=== PATIENT | female | born 1945 | race Caucasian/White ===

== ENCOUNTER 2023-05-08 11:33 | Observation (INO) | payer MEDICARE, SELFPAY ==
--- NOTE | ~2023-05-08 | XR_ITS ---
EXAMINATION: XR CHEST CLINICAL INFORMATION: Shortness of breath. COMPARISON: None available. TECHNIQUE: Frontal view of the chest was obtained. FINDINGS: Lungs are hyperexpanded with flattening of the hemidiaphragms. No pneumothorax or pleural effusion. No focal airspace consolidation. Cardiac silhouette is enlarged. Pulmonary vasculature is unremarkable. Bones are osteopenic. No acute osseous findings. Degenerative spondylosis is present in the thoracic spine. XR/XR chest 1V IMPRESSION: Cardiomegaly. No acute pulmonary findings.
[2023-05-08 11:43] VITALS: BP 112/84; PULSE 94; RESP 18; TEMP 36.5; O2SAT 97; BMI 17.4
--- NOTE | 2023-05-08 11:43 | ECG_ITS ---
Test Reason : SOB Blood Pressure : / mmHG Vent. Rate : 116 BPM Atrial Rate : 116 BPM P-R Int : 156 ms QRS Dur : 082 ms QT Int : 336 ms P-R-T Axes : 061 010 013 degrees QTc Int : 467 ms Sinus tachycardia with Premature atrial complexes Abnormal ECG No previous ECGs available Referred By: Arti Ang Electronically Signed By:EDD FLETCHER
--- NOTE | 2023-05-08 11:45 | ED.DIZZY ---
HPI - Dizziness General Chief Complaint: General Medical Stated Complaint: Diff Breathing Time Seen by Provider: 05/08/23 11:36 Source: patient and family Mode of arrival: ambulatory Limitations: no limitations History of Present Illness HPI Narrative: 78-year-old female felt dizziness and sweating after learned upsetting news of of her daughter in the emergency department. Patient was in the emergency department to see her daughter when she suddenly started to feel dizzy and sweaty with lightheadedness and near-syncope, patient also felt shortness of breath and chest pressure. Patient has an active smoker with no known lung issue, declined using supplemental oxygen at home normally. Related Data Allergies Allergy/AdvReac Type Severity Reaction Status Date / Time No Known Allergies Allergy Verified 05/08/23 11:43 Review of Systems Review of Systems: All other systems are reviewed and are negative Constitutional: Reports as per HPI and Reports no additional constitutional complaints Eyes: Reports as per HPI and Reports no additional eye complaints Reports system reviewed and no additional complaints, except as documented Cardiovascular: Reports as per HPI and Reports no additional cardiovascular complaints Respiratory: Reports as per HPI and Reports no additional respiratory complaints Gastrointestinal: Reports as per HPI and Reports no additional gastrointestinal complaints Genitourinary: Reports no additional female genitourinary complaints Musculoskeletal: Reports no additional musculoskeletal complaints Skin/Breast: Reports system reviewed and no additional complaints, except as docu Psychiatric: Reports no additional psychiatric complaints Endocrine: Reports no additional endocrine complaints Hematologic/Lymphatic: Reports no additional hematologic/lymphatic complaints Allergic/Immunologic: Reports no additional allergic/immunologic complaints Reports system reviewed and no additional complaints, except as documented and Reports Abnormal speech present [facility] Social History Social History Advance Directives: Yes Advance Directives Information Provided: No Advance Directives on File: No Physical Exam Vital Signs: Vital Signs: Last Vital Signs Temp 98.0 F 05/08/23 15:05 Pulse 90 05/08/23 15:05 Resp 16 05/08/23 15:05 BP 100/53 L 05/08/23 15:05 Pulse Ox 96 05/08/23 15:05 O2 Del Method Room Air 05/08/23 15:05 BMI result Body Mass Index 17.4 Appearance: Alert. Oriented X3. No acute distress. Head: Normal external exam. Normocephalic. Atraumatic. No Watson signs noted. No raccoon eyes noted Eyes: PERRLA. EOMI. Conjunctiva and sclera normal. Eyelids normal. ENT: TM's Normal. Pharynx normal. Uvula midline. Moist mucous membranes. No trismus noted. No drooling noted. No muffled voice noted. Neck: Normal inspection. Neck supple. FROM. No adenopathy. Thyroid Normal. No meningeal signs. No neck mass noted. CVS: Normal heart rate and rhythm. Heart sound normal. No murmurs noted. Pulses normal throughout. Respiratory: No respiratory distress. Painless inspiration. Breath sounds normal. No wheezes/rales/rhonchi noted. Chest nontender. No accessory muscle usage noted or decreased air movement noted. Abdomen: Soft and nontender. Bowel sounds normal in all 4 quadrants. No distention noted. No organomegaly noted. No visible injury noted. Back: No CVA tenderness. Full range of motion noted. Skin: Skin warm and dry. Normal skin color. Normal skin turgor. No rashes/lesions/lacerations noted. Extremities: No lower extremity edema. Extremities exhibit normal range of motion. Extremities nontender. Neuro: Oriented X 3. Cranial nerve exam: II-XII are grossly intact No motor deficit. No sensory deficit. Reflexes normal. Course Course Course Narrative: 78-year-old female who had a stress reaction to upsetting news in the emergency department, patient was feeling dizzy and lightheadedness with SOB and chest pain, cardiac workup revealed no acute distress. Reevaluation(s) Reevaluation #1: Patient still have no chest pain, 2nd troponin was elevated with delta changes, case discussed with Dr. Degroot recommended to admit, cardiac monitoring, aspirin, serial troponin, hold off on heparin for now. Time: 16:34 Medications Administered Discontinued Medications Generic Name Dose Route Start Last Admin Trade Name Freq PRN Reason Stop Dose Admin Sodium Chloride 1,000 mls @ 500 mls/hr 05/08/23 11:44 05/08/23 14:46 Ns IV 05/08/23 13:43 Infused .Q2H ONE Infusion Lorazepam 0.5 mg 05/08/23 11:43 05/08/23 11:50 Lorazepam 0.5 Mg Tablet PO 05/08/23 11:44 0.5 mg ONCE ONE Administration Medical Decision Making Differential Diagnosis Differential Diagnoses: The differential diagnosis associated with the presentation includes (ACS, grief reaction, anxiety, electrolyte abnormality, severe anemia.) Admission/Observation Consideration of admission/observation: Escalation of care including admission/observation considered Consult Healthcare Provider Management of the patient was discussed with: Hospitalist (Dr. Magallanes) and Scale Reclamation Tender (Dr. Degroot.) Lab Data MDM Lab Attestation statement: I reviewed the patient's lab results. 05/08/23 11:58 05/08/23 11:58 Labs: Lab Results 05/08/23 05/08/23 05/08/23 Range/Units 11:58 11:58 11:58 WBC 11.8 H (4.8-10.8) X10*3/uL RBC 5.20 (4.20-5.50) X10*6/uL Hgb 15.1 (12.0-16.0) g/dl Hct 46.5 (37.0-47.0) % MCV 89.4 (80.0-98.0) fL MCH 29.0 (27.0-33.0) pg MCHC 32.5 (31.0-35.0) g/dl RDW 13.1 (11.0-16.0) % Plt Count 315 (160-400) X10*3/uL MPV 10.8 (9.4-12.3) fL Immature Gran % (Auto) 0.3 (0.0-0.4) % Neut % (Auto) 79.1 H (45-73) % Lymph % (Auto) 15.5 L (20-40) % [place] % (Auto) 4.5 (2-11) % Eos % (Auto) 0.2 (0-4) % Baso % (Auto) 0.4 (0-2) % Lymph # (Auto) 1.8 (1.2-4.9) X10*3/uL [place] # (Auto) 0.5 (0.1-1.2) X10*3/uL Eos # (Auto) 0.0 (0.0-0.4) X10*3/uL Baso # (Auto) 0.1 (0.0-0.2) X10*3/uL Abs Immat Gran (auto) 0.04 H (0.00-0.03) X10*3/uL Absolute Neuts (auto) 9.3 H (2.0-8.3) x10*3/uL Absolute Nucleated RBC 0.000 (0.0-0.012) X10*3/uL Nucleated RBC % (auto) 0.0 (0.0-0.2) /100WBC Sodium 137 (135-145) mmol/L Potassium 3.7 (3.3-5.1) mmol/L Chloride 102 (96-108) mmol/L Carbon Dioxide 26 (22-29) mmol/L Anion Gap 13 (12-20) BUN 15 (9-16) mg/dL Creatinine 0.76 (0.5-1.4) mg/dL Estim Creat Clear Calc 37.7 Estimated GFR > 60 POC Glucose (60-115) mg/dL Random Glucose 205 H (60-115) mg/dL Calcium 9.6 (8.4-10.2) mg/dL Total Bilirubin 0.5 (0.0-1.0) mg/dL Direct Bilirubin 0.2 (0.0-0.5) mg/dL AST 23 (5-31) U/L ALT 19 (0-31) U/L Alkaline Phosphatase 72 (39-117) U/L Troponin I High Sens 3.3 (<3.5-17.0) ng/L B-Natriuretic Peptide (<100) pg/mL Total Protein 6.9 (6.5-8.0) g/dL Albumin 4.2 (3.5-5.0) g/dL Lipase 29 (8-78) U/L Urine Color Urine Appearance Urine pH (5.0-9.0) Ur Specific [place] (1.005-1.025) Urine Protein (Neg-Trace) mg/dL Urine Glucose (UA) (Negative) mg/dL Urine Ketones (Negative) mg/dL Urine Blood (Negative) Urine Nitrite (Negative) Ur Leukocyte Esterase (Negative) Influenza Type A (PCR) (Negative) Influenza Type B (PCR) (Negative) RSV RNA Qual (PCR) (Negative) SARS-CoV-2 RNA (RT-PCR) (Negative) 05/08/23 05/08/23 05/08/23 Range/Units 11:58 11:58 12:00 WBC (4.8-10.8) X10*3/uL RBC (4.20-5.50) X10*6/uL Hgb (12.0-16.0) g/dl Hct (37.0-47.0) % MCV (80.0-98.0) fL MCH (27.0-33.0) pg MCHC (31.0-35.0) g/dl RDW (11.0-16.0) % Plt Count (160-400) X10*3/uL MPV (9.4-12.3) fL Immature Gran % (Auto) (0.0-0.4) % Neut % (Auto) (45-73) % Lymph % (Auto) (20-40) % [place] % (Auto) (2-11) % Eos % (Auto) (0-4) % Baso % (Auto) (0-2) % Lymph # (Auto) (1.2-4.9) X10*3/uL [place] # (Auto) (0.1-1.2) X10*3/uL Eos # (Auto) (0.0-0.4) X10*3/uL Baso # (Auto) (0.0-0.2) X10*3/uL Abs Immat Gran (auto) (0.00-0.03) X10*3/uL Absolute Neuts (auto) (2.0-8.3) x10*3/uL Absolute Nucleated RBC (0.0-0.012) X10*3/uL Nucleated RBC % (auto) (0.0-0.2) /100WBC Sodium (135-145) mmol/L Potassium (3.3-5.1) mmol/L Chloride (96-108) mmol/L Carbon Dioxide (22-29) mmol/L Anion Gap (12-20) BUN (9-16) mg/dL Creatinine (0.5-1.4) mg/dL Estim Creat Clear Calc Estimated GFR POC Glucose 182 H (60-115) mg/dL Random Glucose (60-115) mg/dL Calcium (8.4-10.2) mg/dL Total Bilirubin (0.0-1.0) mg/dL Direct Bilirubin (0.0-0.5) mg/dL AST (5-31) U/L ALT (0-31) U/L Alkaline Phosphatase (39-117) U/L Troponin I High Sens (<3.5-17.0) ng/L B-Natriuretic Peptide 76 (<100) pg/mL Total Protein (6.5-8.0) g/dL Albumin (3.5-5.0) g/dL Lipase (8-78) U/L Urine Color Urine Appearance Urine pH (5.0-9.0) Ur Specific [place] (1.005-1.025) Urine Protein (Neg-Trace) mg/dL Urine Glucose (UA) (Negative) mg/dL Urine Ketones (Negative) mg/dL Urine Blood (Negative) Urine Nitrite (Negative) Ur Leukocyte Esterase (Negative) Influenza Type A (PCR) NEGATIVE (Negative) Influenza Type B (PCR) NEGATIVE (Negative) RSV RNA Qual (PCR) NEGATIVE (Negative) SARS-CoV-2 RNA (RT-PCR) NEGATIVE (Negative) 05/08/23 05/08/23 Range/Units 13:20 15:09 WBC (4.8-10.8) X10*3/uL RBC (4.20-5.50) X10*6/uL Hgb (12.0-16.0) g/dl Hct (37.0-47.0) % MCV (80.0-98.0) fL MCH (27.0-33.0) pg MCHC (31.0-35.0) g/dl RDW (11.0-16.0) % Plt Count (160-400) X10*3/uL MPV (9.4-12.3) fL Immature Gran % (Auto) (0.0-0.4) % Neut % (Auto) (45-73) % Lymph % (Auto) (20-40) % [place] % (Auto) (2-11) % Eos % (Auto) (0-4) % Baso % (Auto) (0-2) % Lymph # (Auto) (1.2-4.9) X10*3/uL [place] # (Auto) (0.1-1.2) X10*3/uL Eos # (Auto) (0.0-0.4) X10*3/uL Baso # (Auto) (0.0-0.2) X10*3/uL Abs Immat Gran (auto) (0.00-0.03) X10*3/uL Absolute Neuts (auto) (2.0-8.3) x10*3/uL Absolute Nucleated RBC (0.0-0.012) X10*3/uL Nucleated RBC % (auto) (0.0-0.2) /100WBC Sodium (135-145) mmol/L Potassium (3.3-5.1) mmol/L Chloride (96-108) mmol/L Carbon Dioxide (22-29) mmol/L Anion Gap (12-20) BUN (9-16) mg/dL Creatinine (0.5-1.4) mg/dL Estim Creat Clear Calc Estimated GFR POC Glucose (60-115) mg/dL Random Glucose (60-115) mg/dL Calcium (8.4-10.2) mg/dL Total Bilirubin (0.0-1.0) mg/dL Direct Bilirubin (0.0-0.5) mg/dL AST (5-31) U/L ALT (0-31) U/L Alkaline Phosphatase (39-117) U/L Troponin I High Sens 41.1 H D (<3.5-17.0) ng/L B-Natriuretic Peptide (<100) pg/mL Total Protein (6.5-8.0) g/dL Albumin (3.5-5.0) g/dL Lipase (8-78) U/L Urine Color Yellow Urine Appearance Clear Urine pH 7.0 (5.0-9.0) Ur Specific [place] <= 1.005 (1.005-1.025) Urine Protein Trace (Neg-Trace) mg/dL Urine Glucose (UA) Negative (Negative) mg/dL Urine Ketones Negative (Negative) mg/dL Urine Blood Negative (Negative) Urine Nitrite Negative (Negative) Ur Leukocyte Esterase Negative (Negative) Influenza Type A (PCR) (Negative) Influenza Type B (PCR) (Negative) RSV RNA Qual (PCR) (Negative) SARS-CoV-2 RNA (RT-PCR) (Negative) Independent Interpretation I performed an independent interpretation of an: EKG (Sinus tachycardia at 116 beats per minutes, left axis deviation, normal intervals, no ST-T changes.) and Plain X-Ray (Chest: Cardiomegaly no acute pulmonary findings.) Radiology Impression Discussion of test interpretation with radiology: I have reviewed the radiologist's reading. Discharge Plan Discharge Clinical Impression: Grief reaction, Anxiety as acute reaction to exceptional stress, Non-ST elevated myocardial infarction (non-STEMI) Patient Disposition: Admitted As Inpatient
[2023-05-08] MEDS: LORazepam 0.5 MG TABLET PO (11:50)
[2023-05-08] MEDS: 0.9 % Sodium Chloride 1,000 ML 500 ML IV (12:02)
[2023-05-08 12:04] LABS: MANUAL DIFF FLAG NO
[2023-05-08 12:04] LABS: Glucose, Whole Blood 182 mg/dL (60-115)
[2023-05-08 12:06] LABS: Basophils Absolute Auto 0.1 X10*3/uL (0.0-0.2); Basophils Percent Auto 0.4 % (0-2); Eosinophils Percent Auto 0.2 % (0-4); Hematocrit 46.5 % (37.0-47.0); Hemoglobin 15.1 g/dl (12.0-16.0); Imm Gran Abs Auto 0.04 X10*3/uL (0.00-0.03); Imm Gran Pct Auto 0.3 % (0.0-0.4); Lymphocytes Absolute Auto 1.8 X10*3/uL (1.2-4.9); Lymphocytes Percent Auto 15.5 % (20-40); Mean Corpuscular HGB Conc 32.5 g/dl (31.0-35.0); Mean Corpuscular Volume 89.4 fL (80.0-98.0); Mean Platelet Volume 10.8 fL (9.4-12.3); Monocytes Absolute Auto 0.5 X10*3/uL (0.1-1.2); Monocytes Percent Auto 4.5 % (2-11); Neutrophils Absolute Auto 9.3 x10*3/uL (2.0-8.3); Neutrophils Percent Auto 79.1 % (45-73); Platelet Count 315 X10*3/uL (160-400); Red Cell Distribution Width 13.1 % (11.0-16.0); White Blood Count 11.8 X10*3/uL (4.8-10.8)
[2023-05-08 12:34] LABS: Alanine Aminotransferase 19 U/L (0-31); Albumin Level 4.2 g/dL (3.5-5.0); Alkaline Phosphatase 72 U/L (39-117); Anion Gap 13 (12-20); Aspartate Amino Transferase 23 U/L (5-31); Bilirubin Direct 0.2 mg/dL (0.0-0.5); Bilirubin Total 0.5 mg/dL (0.0-1.0); Blood Urea Nitrogen 15 mg/dL (9-16); Calcium 9.6 mg/dL (8.4-10.2); Carbon Dioxide 26 mmol/L (22-29); Chloride 102 mmol/L (96-108); Creatinine Clr Calc Pharmacy 37.7; Estimated Glomerular Filt Rate > 60; Glucose Random 205 mg/dL (60-115); Lipase 29 U/L (8-78); Potassium 3.7 mmol/L (3.3-5.1); Sodium 137 mmol/L (135-145); Total Protein 6.9 g/dL (6.5-8.0)
[2023-05-08 12:41] LABS: B Type Natriuretic Peptide 76 pg/mL (<100)
[2023-05-08 12:42] LABS: Influenza A PCR NEGATIVE (Negative); Influenza B PCR NEGATIVE (Negative); Resp Syncy Virus RNA Qual PCR NEGATIVE (Negative); SARS COV2 PCR INHOUSE NEGATIVE (Negative)
[2023-05-08 12:56] LABS: Troponin-I High Sensitivity 3.3 ng/L (<3.5-17.0)
--- NOTE | 2023-05-08 13:02 | PC.NURSE ---
patient resting in bed, becomes tearful when speaking about recent family loss. patient is visibly less short of breath, appears less anxious, family at bedside
[2023-05-08 13:18] VITALS: BP 108/67; PULSE 92
[2023-05-08 13:19] VITALS: BP 113/76; BP 115/78; PULSE 100; PULSE 94
[2023-05-08 13:32] LABS: Appearance Urine Clear; Color Urine Yellow; Glucose Urine UA Negative (Negative); Leukocyte Esterase Urine Negative (Negative); Nitrite Urine Negative (Negative); Specific Gravity - Urine <= 1.005 (1.005-1.025); Urine Blood Negative (Negative); Urine Ketones Negative (Negative); Urine Protein Trace mg/dL (Neg-Trace)
--- NOTE | 2023-05-08 14:46 | PC.NURSE ---
IV fluids infused per mar. pt c/o pain to IV site and requesting IV be taken out. Ok'd by Dr. Ang. awaiting second trop to be drawn at 1500.
[2023-05-08 15:05] VITALS: BP 100/53; PULSE 90; RESP 16; TEMP 36.7; O2SAT 96
[2023-05-08 15:48] LABS: Troponin-I High Sensitivity 41.1 ng/L (<3.5-17.0)
--- NOTE | 2023-05-08 16:52 | P.HPHOSP_ITS ---
History of Present Illness Date of Service: 05/08/23 Chief Complaint: chest pain 78F no significant PMH. presented with sudden onset chest pain. patient was in ED upon hearing of of her daughter began to feel dizzy, diaphoresis, midsternal chest pain, sob. ekg nonspecific, trop 3.3 to 41, random glucose note d to be 205. Review of Systems Review of Systems: Yes all other systems are reviewed and are negative [facility] Social History Advance Directives: Yes Advance Directives Information Provided: No Advance Directives on File: No Meds Allergies Allergy/AdvReac Type Severity Reaction Status Date / Time No Known Allergies Allergy Verified 05/08/23 11:43 Active Medications: Current Medications Sodium Chloride (0.9 % Sodium Chloride Flush 3 Ml Syringe) 3 ml IVFLUSH QSHIFT CHANI Physical Exam Vital Signs and Narrative: Vital Signs: Last Vital Signs Temp 98.0 F 05/08/23 15:05 Pulse 90 05/08/23 15:05 Resp 16 05/08/23 15:05 BP 100/53 L 05/08/23 15:05 Pulse Ox 96 05/08/23 15:05 O2 Del Method Room Air 05/08/23 15:05 BMI result Body Mass Index 17.4 General: AO X 3, no acute distress Resp: CTA bilateral, no accessory muscles used CVS: S1,S2,RRR GI: soft, non tender, non distended Neuro: motor grossly intact, alert Psych: appropriate affect, appropriate insight Results Labs 05/08/23 11:58 05/08/23 11:58 Labs: Laboratory Results - last 24 hr 05/08/23 05/08/23 05/08/23 11:58 11:58 11:58 MCV 89.4 MCH 29.0 MCHC 32.5 RDW 13.1 Plt Count 315 MPV 10.8 Immature Gran % (Auto) 0.3 Neut % (Auto) 79.1 H Lymph % (Auto) 15.5 L [place] % (Auto) 4.5 Eos % (Auto) 0.2 Baso % (Auto) 0.4 Lymph # (Auto) 1.8 [place] # (Auto) 0.5 Eos # (Auto) 0.0 Baso # (Auto) 0.1 Abs Immat Gran (auto) 0.04 H Absolute Neuts (auto) 9.3 H Absolute Nucleated RBC 0.000 Nucleated RBC % (auto) 0.0 Anion Gap 13 Estim Creat Clear Calc 37.7 Estimated GFR > 60 POC Glucose Random Glucose 205 H Calcium 9.6 Total Bilirubin 0.5 Direct Bilirubin 0.2 AST 23 ALT 19 Alkaline Phosphatase 72 B-Natriuretic Peptide 76 Total Protein 6.9 Albumin 4.2 Lipase 29 Urine Color Urine Appearance Urine pH Ur Specific [place] Urine Protein Urine Glucose (UA) Urine Ketones Urine Blood Urine Nitrite Ur Leukocyte Esterase Influenza Type A (PCR) Influenza Type B (PCR) RSV RNA Qual (PCR) SARS-CoV-2 RNA (RT-PCR) 05/08/23 05/08/23 05/08/23 11:58 12:00 13:20 MCV MCH MCHC RDW Plt Count MPV Immature Gran % (Auto) Neut % (Auto) Lymph % (Auto) [place] % (Auto) Eos % (Auto) Baso % (Auto) Lymph # (Auto) [place] # (Auto) Eos # (Auto) Baso # (Auto) Abs Immat Gran (auto) Absolute Neuts (auto) Absolute Nucleated RBC Nucleated RBC % (auto) Anion Gap Estim Creat Clear Calc Estimated GFR POC Glucose 182 H Random Glucose Calcium Total Bilirubin Direct Bilirubin AST ALT Alkaline Phosphatase B-Natriuretic Peptide Total Protein Albumin Lipase Urine Color Yellow Urine Appearance Clear Urine pH 7.0 Ur Specific [place] <= 1.005 Urine Protein Trace Urine Glucose (UA) Negative Urine Ketones Negative Urine Blood Negative Urine Nitrite Negative Ur Leukocyte Esterase Negative Influenza Type A (PCR) NEGATIVE Influenza Type B (PCR) NEGATIVE RSV RNA Qual (PCR) NEGATIVE SARS-CoV-2 RNA (RT-PCR) NEGATIVE Imaging Radiologist's Impressions: Impressions Chest X-Ray 05/08/23 13:00 IMPRESSION: Cardiomegaly. No acute pulmonary findings. Assessment and Plan (1) Chest pain: Status: Acute Plan 78F presented with chest pain chest pain with elevated troponin monitor on tele cardio eval serial trop hyperglycemia check a1c dvt prophylaxis - lovenox full code Time Spent With Patient Time: Total time managing care of this patient today ____ minutes. Quality Stroke Does the patient have a stroke diagnosis?: No VTE Prior VTE?: No VTE Risk Level:: Medical - moderate - high VTE Device Contraindication: Treatment Not Indicated VTE Drug Contraindication: N/A - Med Ordered
[2023-05-08] MEDS: Aspirin Enteric Coated 81 MG TABLET.DR PO (16:56)
[2023-05-08 17:04] LABS: Estimated Average Glucose 103 mg/dL; Hemoglobin A1c % 5.2 % (<6.0)
--- NOTE | 2023-05-08 17:35 | PHA.MEDREC ---
Pharmacy Consult ? Medication Reconciliation Pharmacy has completed the medication reconciliation.
[2023-05-08 18:15] LABS: Troponin-I High Sensitivity 47.4 ng/L (<3.5-17.0)
[2023-05-08 18:25] VITALS: BP 117/64; PULSE 72; RESP 20; TEMP 37.2; O2SAT 96
[2023-05-08 18:39] VITALS: BMI 18.4
[2023-05-08 19:09] VITALS: BP 117/64; PULSE 72; RESP 18; TEMP 37.2; O2SAT 96
[2023-05-08] MEDS: 0.9 % Sodium Chloride Flush 3 ML SYRINGE IVFLUSH (20:58)
[2023-05-09] VITALS: BP 104/66; PULSE 70; RESP 20; TEMP 36.2; O2SAT 96
--- NOTE | 2023-05-09 | ECG_ITS ---
Test Reason : chest pain Blood Pressure : / mmHG Vent. Rate : 087 BPM Atrial Rate : 087 BPM P-R Int : 152 ms QRS Dur : 074 ms QT Int : 346 ms P-R-T Axes : 067 010 002 degrees QTc Int : 416 ms Sinus rhythm with marked sinus arrhythmia Otherwise normal ECG When compared with ECG of 08-MAY-2023 11:51, Heart rate has decreased Referred By: Stephan Magallanes Electronically Signed By:EDD FLETCHER
[2023-05-09 03:28] VITALS: BP 128/64; PULSE 78; RESP 20; TEMP 36.1; O2SAT 97
[2023-05-09 06:20] LABS: Anion Gap 9 (12-20); Blood Urea Nitrogen 17 mg/dL (9-16); Calcium 9.2 mg/dL (8.4-10.2); Carbon Dioxide 26 mmol/L (22-29); Chloride 112 mmol/L (96-108); Creatinine Clr Calc Pharmacy 40.4; Estimated Glomerular Filt Rate > 60; Glucose Fasting 86 mg/dL (60-99); Magnesium 2.1 mg/dL (1.6-2.6); Potassium 4.3 mmol/L (3.3-5.1); Sodium 143 mmol/L (135-145)
[2023-05-09 06:25] LABS: Troponin-I High Sensitivity 23.9 ng/L (<3.5-17.0)
[2023-05-09 06:39] LABS: Hematocrit 38.9 % (37.0-47.0); Hemoglobin 12.4 g/dl (12.0-16.0); Mean Corpuscular HGB Conc 31.9 g/dl (31.0-35.0); Mean Corpuscular Hemoglobin 29.3 pg (27.0-33.0); Mean Platelet Volume 11.9 fL (9.4-12.3); Platelet Count 256 X10*3/uL (160-400); Red Blood Count 4.23 X10*6/uL (4.20-5.50); Red Cell Distribution Width 13.2 % (11.0-16.0); White Blood Count 8.4 X10*3/uL (4.8-10.8)
[2023-05-09 07:25] VITALS: BP 123/63; PULSE 76; RESP 20; TEMP 36.2; O2SAT 95
[2023-05-09] MEDS: 0.9 % Sodium Chloride Flush 3 ML SYRINGE IVFLUSH (09:13)
[2023-05-09] MEDS: Multivitamin TABLET 1 TAB PO (09:13)
[2023-05-09] MEDS: Cholecalciferol (Vitamin D3) 25 MCG TABLET 50 MCG PO (09:13)
[2023-05-09] MEDS: Enoxaparin Sodium 40 MG/0.4 ML SYRINGE SUBCUT (09:13)
--- NOTE | 2023-05-09 10:42 | P.DS_ITS ---
DS: Providers Provider Date of Service: 05/09/23 Date of admission: 05/08/23 16:51 Primary care physician: Unknown Physician Consults: 05/08/23 16:50 Consult to Cardiology Routine Consulting Provider: [facility] Reason for consultation: cehst pain, troponin DS: Diagnosis Discharge Diagnosis (1) Chest pain: Status: Acute DS: Summary Hospital Course Hospital Course: from initial hpi: 78F no significant PMH. presented with sudden onset chest pain. patient was in ED upon hearing of of her daughter began to feel dizzy, diaphoresis, midsternal chest pain, sob. ekg nonspecific, trop 3.3 to 41, random glucose noted to be 205. hospital course: Patient was observed for chest pain. Her troponin peaked in the 40s. Chest pain resolved. EKG with no ischemic changes, marked sinus arrhythmia. Hyperglycemia resolved and A1c was 5.2. Patient will be discharged home. Time Spent with Patient Time attestation: Total time managing care of this patient today ____ minutes. Discharge coordination time: Greater than 30 minutes Quality: Safe Use of Opioids Does Pt have an Active Cancer Diagnosis on the Problem List?: No Quality: Stroke Does the patient have a stroke diagnosis?: No Physical Exam Vital Signs: Vital Signs: Last Vital Signs Temp 97.2 F 05/09/23 07:25 Pulse 76 05/09/23 07:25 Resp 20 05/09/23 07:25 BP 123/63 05/09/23 07:25 Pulse Ox 95 05/09/23 07:25 O2 Del Method Room Air 05/09/23 07:25 BMI result Body Mass Index 18.4 General: AO X 3, no acute distress Resp: CTA bilateral, no accessory muscles used CVS: S1,S2,RRR GI: soft, non tender, non distended Neuro: motor grossly intact, alert Psych: appropriate affect, appropriate insight DS: Data Data Completed and Pending Labs on day of discharge: Laboratory Results - last 24 hr 05/08/23 05/08/23 05/08/23 11:58 11:58 11:58 WBC 11.8 H RBC 5.20 Hgb 15.1 Hct 46.5 MCV 89.4 MCH 29.0 MCHC 32.5 RDW 13.1 Plt Count 315 MPV 10.8 Immature Gran % (Auto) 0.3 Neut % (Auto) 79.1 H Lymph % (Auto) 15.5 L [place] % (Auto) 4.5 Eos % (Auto) 0.2 Baso % (Auto) 0.4 Lymph # (Auto) 1.8 [place] # (Auto) 0.5 Eos # (Auto) 0.0 Baso # (Auto) 0.1 Abs Immat Gran (auto) 0.04 H Absolute Neuts (auto) 9.3 H Absolute Nucleated RBC 0.000 Nucleated RBC % (auto) 0.0 Sodium 137 Potassium 3.7 Chloride 102 Carbon Dioxide 26 Anion Gap 13 BUN 15 Creatinine 0.76 Estim Creat Clear Calc 37.7 Estimated GFR > 60 POC Glucose Random Glucose 205 H Fasting Glucose Estimat Average Glucose Hemoglobin A1c % Calcium 9.6 Magnesium Total Bilirubin 0.5 Direct Bilirubin 0.2 AST 23 ALT 19 Alkaline Phosphatase 72 Troponin I High Sens 3.3 B-Natriuretic Peptide Total Protein 6.9 Albumin 4.2 Lipase 29 Urine Color Urine Appearance Urine pH Ur Specific [place] Urine Protein Urine Glucose (UA) Urine Ketones Urine Blood Urine Nitrite Ur Leukocyte Esterase Influenza Type A (PCR) Influenza Type B (PCR) RSV RNA Qual (PCR) SARS-CoV-2 RNA (RT-PCR) 05/08/23 05/08/23 05/08/23 11:58 11:58 11:58 WBC RBC Hgb Hct MCV MCH MCHC RDW Plt Count MPV Immature Gran % (Auto) Neut % (Auto) Lymph % (Auto) [place] % (Auto) Eos % (Auto) Baso % (Auto) Lymph # (Auto) [place] # (Auto) Eos # (Auto) Baso # (Auto) Abs Immat Gran (auto) Absolute Neuts (auto) Absolute Nucleated RBC Nucleated RBC % (auto) Sodium Potassium Chloride Carbon Dioxide Anion Gap BUN Creatinine Estim Creat Clear Calc Estimated GFR POC Glucose Random Glucose Fasting Glucose Estimat Average Glucose 103 Hemoglobin A1c % 5.2 Calcium Magnesium Total Bilirubin Direct Bilirubin AST ALT Alkaline Phosphatase Troponin I High Sens B-Natriuretic Peptide 76 Total Protein Albumin Lipase Urine Color Urine Appearance Urine pH Ur Specific [place] Urine Protein Urine Glucose (UA) Urine Ketones Urine Blood Urine Nitrite Ur Leukocyte Esterase Influenza Type A (PCR) NEGATIVE Influenza Type B (PCR) NEGATIVE RSV RNA Qual (PCR) NEGATIVE SARS-CoV-2 RNA (RT-PCR) NEGATIVE 05/08/23 05/08/23 05/08/23 12:00 13:20 15:09 WBC RBC Hgb Hct MCV MCH MCHC RDW Plt Count MPV Immature Gran % (Auto) Neut % (Auto) Lymph % (Auto) [place] % (Auto) Eos % (Auto) Baso % (Auto) Lymph # (Auto) [place] # (Auto) Eos # (Auto) Baso # (Auto) Abs Immat Gran (auto) Absolute Neuts (auto) Absolute Nucleated RBC Nucleated RBC % (auto) Sodium Potassium Chloride Carbon Dioxide Anion Gap BUN Creatinine Estim Creat Clear Calc Estimated GFR POC Glucose 182 H Random Glucose Fasting Glucose Estimat Average Glucose Hemoglobin A1c % Calcium Magnesium Total Bilirubin Direct Bilirubin AST ALT Alkaline Phosphatase Troponin I High Sens 41.1 H D B-Natriuretic Peptide Total Protein Albumin Lipase Urine Color Yellow Urine Appearance Clear Urine pH 7.0 Ur Specific [place] <= 1.005 Urine Protein Trace Urine Glucose (UA) Negative Urine Ketones Negative Urine Blood Negative Urine Nitrite Negative Ur Leukocyte Esterase Negative Influenza Type A (PCR) Influenza Type B (PCR) RSV RNA Qual (PCR) SARS-CoV-2 RNA (RT-PCR) 05/08/23 05/09/23 05/09/23 17:48 05:40 05:40 WBC 8.4 RBC 4.23 Hgb 12.4 Hct 38.9 MCV 92.0 MCH 29.3 MCHC 31.9 RDW 13.2 Plt Count 256 MPV 11.9 Immature Gran % (Auto) Neut % (Auto) Lymph % (Auto) [place] % (Auto) Eos % (Auto) Baso % (Auto) Lymph # (Auto) [place] # (Auto) Eos # (Auto) Baso # (Auto) Abs Immat Gran (auto) Absolute Neuts (auto) Absolute Nucleated RBC 0.000 Nucleated RBC % (auto) 0.0 Sodium 143 Potassium 4.3 Chloride 112 H Carbon Dioxide 26 Anion Gap 9 L BUN 17 H Creatinine 0.75 Estim Creat Clear Calc 40.4 Estimated GFR > 60 POC Glucose Random Glucose Fasting Glucose 86 Estimat Average Glucose Hemoglobin A1c % Calcium 9.2 Magnesium 2.1 Total Bilirubin Direct Bilirubin AST ALT Alkaline Phosphatase Troponin I High Sens 47.4 H B-Natriuretic Peptide Total Protein Albumin Lipase Urine Color Urine Appearance Urine pH Ur Specific [place] Urine Protein Urine Glucose (UA) Urine Ketones Urine Blood Urine Nitrite Ur Leukocyte Esterase Influenza Type A (PCR) Influenza Type B (PCR) RSV RNA Qual (PCR) SARS-CoV-2 RNA (RT-PCR) 05/09/23 05:40 WBC RBC Hgb Hct MCV MCH MCHC RDW Plt Count MPV Immature Gran % (Auto) Neut % (Auto) Lymph % (Auto) [place] % (Auto) Eos % (Auto) Baso % (Auto) Lymph # (Auto) [place] # (Auto) Eos # (Auto) Baso # (Auto) Abs Immat Gran (auto) Absolute Neuts (auto) Absolute Nucleated RBC Nucleated RBC % (auto) Sodium Potassium Chloride Carbon Dioxide Anion Gap BUN Creatinine Estim Creat Clear Calc Estimated GFR POC Glucose Random Glucose Fasting Glucose Estimat Average Glucose Hemoglobin A1c % Calcium Magnesium Total Bilirubin Direct Bilirubin AST ALT Alkaline Phosphatase Troponin I High Sens 23.9 H B-Natriuretic Peptide Total Protein Albumin Lipase Urine Color Urine Appearance Urine pH Ur Specific [place] Urine Protein Urine Glucose (UA) Urine Ketones Urine Blood Urine Nitrite Ur Leukocyte Esterase Influenza Type A (PCR) Influenza Type B (PCR) RSV RNA Qual (PCR) SARS-CoV-2 RNA (RT-PCR) Discharge Plan Discharge Anticipated Discharge Date/Time: 05/09/23 10:33 Patient Disposition: Home, Self-Care Discharge Diagnosis: chest pain Referrals: Physician,Unknown J [Primary Care Provider] - 1 Week Discharge Medications: Continued multivitamin Tablet 1 tab PO DAILY ibuprofen 200 mg Tablet 400 mg PO DAILY PRN (Reason: Pain) cholecalciferol (vitamin D3) 50 mcg (2,000 unit) Capsule 50 mcg PO DAILY Discharge Orders: Discharge Order (Routine); Ordered 05/09/23 Ordered By: Stephan Magallanes Diet: Advance to usual diet Activity on Discharge: As tolerated Stand Alone Forms: Patient Portal Discharge page Care Plan Goals: recovery Health Concerns: chest pain Plan of Treatment: follow up cardio Assessment: see above Patient Instructions: Grief and Loss (ED)
--- NOTE | 2023-05-09 11:11 | MHC.CM.PN ---
met with pt and grandson pt lives with son is independent no servies will be needed
[2023-05-09 11:19] VITALS: BP 151/68; PULSE 41; RESP 20; TEMP 36.7; O2SAT 100
--- NOTE | 2023-05-09 11:32 | P.CONCA_ITS ---
History of Present Illness History of Present Illness Date of Service: 05/09/23 Requesting physician: Stephan Magallanes Chief complaint: chest pain Narrative: 78-year-old female who is presenting for chest pain and diaphoresis. She found out about her daughter's and developed some chest discomfort ends sweating along with shortness of breath. With these symptoms she was brought to emergency department. ECG did not have any dynamic changes. She has mild el evation of troponin and she was admitted. Repeat ECG showing no room acute changes 2. She is completely symptom free. She has been walking the hallways without any issues at this point. She feels that this was an anxiety attack after finding about her daughter's . She is a smoker and has been smoking all her life. Denies any cardiovascular issues otherwise. [facility] Social History Social History Patient Tobacco Use Status: Current everyday Tobacco user Cigarette Packs Per Day: 1 Cigarettes Per Day: 20.0 Advance Directives Date on File: 05/08/23 Meds Allergies Allergy/AdvReac Type Severity Reaction Status Date / Time No Known Allergies Allergy Verified 05/08/23 11:43 Active Medications: Current Medications Enoxaparin Sodium (Enoxaparin Sodium 40 Mg/0.4 Ml Syringe) 40 mg SUBCUT Q24H [facility] Last Admin: 05/09/23 09:13 Dose: 40 mg Multivitamins/Vitamin C (Multivitamin Tablet) 1 tab PO DAILY [facility] Last Admin: 05/09/23 09:13 Dose: 1 tab Sodium Chloride (0.9 % Sodium Chloride Flush 3 Ml Syringe) 3 ml IVFLUSH QSHIFT [facility] Last Admin: 05/09/23 09:13 Dose: 3 ml Vitamin D (Cholecalciferol (Vitamin D3) 25 Mcg Tablet) 50 mcg PO DAILY [facility] Last Admin: 05/09/23 09:13 Dose: 50 mcg Home Medications Medication Instructions Recorded Confirmed Last Taken Type cholecalciferol (vitamin D3) 50 50 mcg PO DAILY 05/08/23 05/08/23 Unknown History mcg (2,000 unit) capsule ibuprofen 200 mg tablet 400 mg PO DAILY PRN Pain 05/08/23 05/08/23 Unknown History multivitamin 1 tab PO DAILY 05/08/23 05/08/23 Unknown History Physical Exam 2 Vital Signs: Vital Signs: Last Vital Signs Temp 98.1 F 05/09/23 11:19 Pulse 41 L 05/09/23 11:19 Resp 20 05/09/23 11:19 BP 151/68 H 05/09/23 11:19 Pulse Ox 100 05/09/23 11:19 O2 Del Method Room Air 05/09/23 11:19 BMI result Body Mass Index 18.4 GENERAL APPEARANCE: in no acute distress, tearful. NECK: no carotid bruit, no jugular venous distention. SKIN: no suspicious lesions, warm and dry. HEART: no murmurs, regular rate and rhythm. LUNGS: clear to auscultation bilaterally. ABDOMEN: soft, nontender. EXTREMITIES: no edema. PERIPHERAL PULSES: equal. NEUROLOGIC: No gross deficits, AAO X 3 Objective Labs and Meds 05/09/23 05:40 05/09/23 05:40 Lab results: Laboratory Results - last 24 hr 05/08/23 05/08/23 05/08/23 11:58 11:58 11:58 WBC 11.8 H RBC 5.20 Hgb 15.1 Hct 46.5 MCV 89.4 MCH 29.0 MCHC 32.5 RDW 13.1 Plt Count 315 MPV 10.8 Immature Gran % (Auto) 0.3 Neut % (Auto) 79.1 H Lymph % (Auto) 15.5 L [place] % (Auto) 4.5 Eos % (Auto) 0.2 Baso % (Auto) 0.4 Lymph # (Auto) 1.8 [place] # (Auto) 0.5 Eos # (Auto) 0.0 Baso # (Auto) 0.1 Abs Immat Gran (auto) 0.04 H Absolute Neuts (auto) 9.3 H Absolute Nucleated RBC 0.000 Nucleated RBC % (auto) 0.0 Sodium 137 Potassium 3.7 Chloride 102 Carbon Dioxide 26 Anion Gap 13 BUN 15 Creatinine 0.76 Estim Creat Clear Calc 37.7 Estimated GFR > 60 POC Glucose Random Glucose 205 H Fasting Glucose Estimat Average Glucose Hemoglobin A1c % Calcium 9.6 Magnesium Total Bilirubin 0.5 Direct Bilirubin 0.2 AST 23 ALT 19 Alkaline Phosphatase 72 Troponin I High Sens 3.3 B-Natriuretic Peptide Total Protein 6.9 Albumin 4.2 Lipase 29 Urine Color Urine Appearance Urine pH Ur Specific [place] Urine Protein Urine Glucose (UA) Urine Ketones Urine Blood Urine Nitrite Ur Leukocyte Esterase Influenza Type A (PCR) Influenza Type B (PCR) RSV RNA Qual (PCR) SARS-CoV-2 RNA (RT-PCR) 05/08/23 05/08/23 05/08/23 11:58 11:58 11:58 WBC RBC Hgb Hct MCV MCH MCHC RDW Plt Count MPV Immature Gran % (Auto) Neut % (Auto) Lymph % (Auto) [place] % (Auto) Eos % (Auto) Baso % (Auto) Lymph # (Auto) [place] # (Auto) Eos # (Auto) Baso # (Auto) Abs Immat Gran (auto) Absolute Neuts (auto) Absolute Nucleated RBC Nucleated RBC % (auto) Sodium Potassium Chloride Carbon Dioxide Anion Gap BUN Creatinine Estim Creat Clear Calc Estimated GFR POC Glucose Random Glucose Fasting Glucose Estimat Average Glucose 103 Hemoglobin A1c % 5.2 Calcium Magnesium Total Bilirubin Direct Bilirubin AST ALT Alkaline Phosphatase Troponin I High Sens B-Natriuretic Peptide 76 Total Protein Albumin Lipase Urine Color Urine Appearance Urine pH Ur Specific [place] Urine Protein Urine Glucose (UA) Urine Ketones Urine Blood Urine Nitrite Ur Leukocyte Esterase Influenza Type A (PCR) NEGATIVE Influenza Type B (PCR) NEGATIVE RSV RNA Qual (PCR) NEGATIVE SARS-CoV-2 RNA (RT-PCR) NEGATIVE 05/08/23 05/08/23 05/08/23 12:00 13:20 15:09 WBC RBC Hgb Hct MCV MCH MCHC RDW Plt Count MPV Immature Gran % (Auto) Neut % (Auto) Lymph % (Auto) [place] % (Auto) Eos % (Auto) Baso % (Auto) Lymph # (Auto) [place] # (Auto) Eos # (Auto) Baso # (Auto) Abs Immat Gran (auto) Absolute Neuts (auto) Absolute Nucleated RBC Nucleated RBC % (auto) Sodium Potassium Chloride Carbon Dioxide Anion Gap BUN Creatinine Estim Creat Clear Calc Estimated GFR POC Glucose 182 H Random Glucose Fasting Glucose Estimat Average Glucose Hemoglobin A1c % Calcium Magnesium Total Bilirubin Direct Bilirubin AST ALT Alkaline Phosphatase Troponin I High Sens 41.1 H D B-Natriuretic Peptide Total Protein Albumin Lipase Urine Color Yellow Urine Appearance Clear Urine pH 7.0 Ur Specific [place] <= 1.005 Urine Protein Trace Urine Glucose (UA) Negative Urine Ketones Negative Urine Blood Negative Urine Nitrite Negative Ur Leukocyte Esterase Negative Influenza Type A (PCR) Influenza Type B (PCR) RSV RNA Qual (PCR) SARS-CoV-2 RNA (RT-PCR) 05/08/23 05/09/23 05/09/23 17:48 05:40 05:40 WBC 8.4 RBC 4.23 Hgb 12.4 Hct 38.9 MCV 92.0 MCH 29.3 MCHC 31.9 RDW 13.2 Plt Count 256 MPV 11.9 Immature Gran % (Auto) Neut % (Auto) Lymph % (Auto) [place] % (Auto) Eos % (Auto) Baso % (Auto) Lymph # (Auto) [place] # (Auto) Eos # (Auto) Baso # (Auto) Abs Immat Gran (auto) Absolute Neuts (auto) Absolute Nucleated RBC 0.000 Nucleated RBC % (auto) 0.0 Sodium 143 Potassium 4.3 Chloride 112 H Carbon Dioxide 26 Anion Gap 9 L BUN 17 H Creatinine 0.75 Estim Creat Clear Calc 40.4 Estimated GFR > 60 POC Glucose Random Glucose Fasting Glucose 86 Estimat Average Glucose Hemoglobin A1c % Calcium 9.2 Magnesium 2.1 Total Bilirubin Direct Bilirubin AST ALT Alkaline Phosphatase Troponin I High Sens 47.4 H B-Natriuretic Peptide Total Protein Albumin Lipase Urine Color Urine Appearance Urine pH Ur Specific [place] Urine Protein Urine Glucose (UA) Urine Ketones Urine Blood Urine Nitrite Ur Leukocyte Esterase Influenza Type A (PCR) Influenza Type B (PCR) RSV RNA Qual (PCR) SARS-CoV-2 RNA (RT-PCR) 05/09/23 05:40 WBC RBC Hgb Hct MCV MCH MCHC RDW Plt Count MPV Immature Gran % (Auto) Neut % (Auto) Lymph % (Auto) [place] % (Auto) Eos % (Auto) Baso % (Auto) Lymph # (Auto) [place] # (Auto) Eos # (Auto) Baso # (Auto) Abs Immat Gran (auto) Absolute Neuts (auto) Absolute Nucleated RBC Nucleated RBC % (auto) Sodium Potassium Chloride Carbon Dioxide Anion Gap BUN Creatinine Estim Creat Clear Calc Estimated GFR POC Glucose Random Glucose Fasting Glucose Estimat Average Glucose Hemoglobin A1c % Calcium Magnesium Total Bilirubin Direct Bilirubin AST ALT Alkaline Phosphatase Troponin I High Sens 23.9 H B-Natriuretic Peptide Total Protein Albumin Lipase Urine Color Urine Appearance Urine pH Ur Specific [place] Urine Protein Urine Glucose (UA) Urine Ketones Urine Blood Urine Nitrite Ur Leukocyte Esterase Influenza Type A (PCR) Influenza Type B (PCR) RSV RNA Qual (PCR) SARS-CoV-2 RNA (RT-PCR) Imaging Radiologist's impression: Impressions Chest X-Ray 05/08/23 13:00 IMPRESSION: Cardiomegaly. No acute pulmonary findings. Assessment and Plan (1) Chest pain: Status: Acute Plan 78-year-old female presenting after receiving use of her daughter's with chest discomfort, shortness of breath and sweating. High sensitivity troponin levels mildly elevated 3.3, 41, 47 and 23. No dynamic EKG changes. She has been walking the hallways and has no symptoms currently. Overall clinically stable. We will arrange an outpatient stress test for her. Recommend baby aspirin and low-dose beta-sarah for now. Thank you for allowing me to participate in the care of your patient. Please feel free to contact me if you have any questions. Time Spent With Patient Time: Total time managing care of this patient today ____ minutes. Procedures Date of Service Date of Service: 05/09/23
== END 2023-05-09 11:58 | disposition home or self-care (01) ==
LOC: HO.ED 16:33 → HO.EDOVER 16:57 → HO.IMC 17:46
PROVIDERS: Admitting Provider Internal Medicine; Emergency Provider Emergency Medicine; Visit Provider Internal Medicine
DX: R07.9 Chest pain, unspecified (principal); I21.4 Non-ST elevation (NSTEMI) myocardial infarction; R55 Syncope and collapse; R73.9 Hyperglycemia, unspecified; F43.20 Adjustment disorder, unspecified; Z20.828 Contact with and (suspected) exposure to other viral communicable diseases
CPT/HCPCS: 0241U; 36415; 71045; 80048; 80076; 81003; 82947; 83036; 83690; 83735; 83880; 84484; 85025; 85027; 93005; 96360; 96361; 96372; 99222; 99285; J1650

== ENCOUNTER → 2023-05-08 16:51 | Outpatient (BNV) | payer MEDICARE, SELFPAY | PROVIDERS: Admitting Provider Internal Medicine; Emergency Provider Emergency Medicine; Visit Provider Internal Medicine | DX: R07.9 Chest pain, unspecified (principal) | CPT/HCPCS: 99222; 99239 ==

== ENCOUNTER → 2023-05-08 16:51 | Outpatient (BNV) | payer MEDICARE, SELFPAY | PROVIDERS: Admitting Provider Internal Medicine; Emergency Provider Emergency Medicine; Visit Provider Internal Medicine Cardiovascular Disease | DX: R07.9 Chest pain, unspecified (principal) | CPT/HCPCS: 99222 ==